=== PATIENT | female | born 1980 | race Caucasian/White ===

== ENCOUNTER 2017-04-18 12:42 | Emergency (ER) | payer OTHER ==
[2017-04-18] MEDS ORDERED: diazePAM INJ 5 MG/ML SYRINGE IM STA (12:59)
[2017-04-18] MEDS ORDERED: KETOROLAC 60 MG/2 ML VIAL IM STA (12:59)
--- NOTE | 2017-04-18 13:00 | ED Physician Documentation ---
PD HPI BACK PAIN - Stated complaint Stated Complaint: LOWER BACK PX - Chief complaint Chief Complaint: Back Pain - History obtained from History obtained from: Patient, Family - History of Present Illness Timing - onset: Other (Without specific trauma she developed thoracic back pain radiating around to the sides, both sides equally today. It is much worse with sitting up, bending or twisting. There is no associated weakness, numbness, or tingling of the legs or saddle area, no incontinence or changes in bowel movements. No fevers.) Review of Systems Constitutional: denies: Fever, Chills Cardiac: denies: Chest pain / pressure Respiratory: denies: Cough, Hemoptysis, Wheezing GI: denies: Abdominal Pain, Nausea PD PAST MEDICAL HISTORY - Present Medications Home Medications: Ambulatory Orders Medication Instructions Recorded Confirmed Cyclobenzaprine [Flexeril] 10 mg PO TID PRN #20 tablet 04/18/17 HYDROcod/ACETAM 5/325 [[place] 5/325] 1 - 2 ea PO Q6H PRN #15 tablet 04/18/17 Ibuprofen [Motrin] 800 mg PO Q8H PRN #30 tablet 04/18/17 Venlafaxine [Effexor] 37.5 mg PO BID 04/18/17 04/18/17 - Allergies Allergies/Adverse Reactions: Allergies Allergy/AdvReac Type Severity Reaction Status Date / Time Penicillins Allergy Anaphylaxis Verified 04/18/17 12:52 PD ED PE NORMAL - Vitals Vital signs reviewed: Yes - General General: Alert and oriented X 3, Other (Winces with motion, comfortable at rest) - Cardiac Cardiac: RRR, No murmur - Respiratory Respiratory: No respiratory distress, Clear bilaterally - Abdomen Abdomen: Non tender - Back Back: No spinal TTP, Other (No reproducible muscular pain of the back.) - Extremities Extremities: Other (The patient has equal and normal Achilles and patellar reflexes bilaterally. Normal sensation in all areas of the legs. Patient denies saddle anesthesia. Normal strength in flexion-extension at the ankles, knees, and flexion of the hips.) - Neuro Neuro: Alert and oriented X 3, Normal speech - Psych Psych: Normal mood, Normal affect Results - Vitals Vitals: Vital Signs - 24 hr 04/18/17 04/18/17 04/18/17 12:49 13:57 14:28 Temperature 36.4 C L 36.7 C 36.7 C Heart Rate 113 H 100 110 H Respiratory 18 18 18 Rate Blood Pressure 131/99 H 132/99 H 138/99 H O2 Saturation 99 98 98 Oxygen O2 Source Room air PD MEDICAL DECISION MAKING - ED course ED course: This patient has seemingly uncomplicated musculoskeletal back pain. The patient has no "red flags." Specifically denies IV drug use, fevers, incontinence, saddle anesthesia. Spinal epidural abscess was considered, given that the patient has no fever, is not diabetic, has no spinal tenderness, does not use IV drugs, and has no bilateral neurologic symptoms, the diagnosis of spinal epidural abscess is considered exceedingly unlikely. She was initially treated with Toradol and Valium IM with modest relief, much better relief after a milligram of Dilaudid IM and requesting discharge. The patient and family were counseled as to the diagnosis and need for follow- up. I counseled the patient with regard to signs and symptoms that would necessitate an urgent reevaluation in the emergency department. They understand they are welcome to return at any time if worse or if not improving as expected. This document was made in part using voice recognition software. While efforts are made to proofread this documents, sound alike and grammatical errors may occur. Departure - Departure Disposition: 01 Home, Self Care Clinical Impression: Back spasm Condition: Good Record reviewed to determine appropriate education?: Yes Instructions: ED Spasm Back No Trauma Prescriptions: Cyclobenzaprine [Flexeril] 10 mg PO TID PRN #20 tablet PRN Reason: Pain HYDROcod/ACETAM 5/325 [[place] 5/325] 1 - 2 ea PO Q6H PRN #15 tablet PRN Reason: Pain Ibuprofen [Motrin] 800 mg PO Q8H PRN #30 tablet PRN Reason: PAIN &/OR FEVER Comments: Your blood pressure was elevated today on check into the emergency department. This does not mean that you have hypertension, it is a common phenomenon to come to the emergency department and have elevated blood pressure. I recommend that you see your primary care physician within the week to have it rechecked when you are feeling better. Do not drink or drive while taking narcotic pain medication. Note that many narcotic pain relievers also contain Tylenol/acetaminophen. Please ensure that your total dose of acetaminophen from all sources does not exceed 3 g (3000 mg) per day. You may get constipated while on this medication. Take a stool softener such as Colace twice a day while you are on it. Also add an dqof-uxi-auixmlp laxative such as senna or MiraLAX on any day that you do not have a bowel movement. If you received a narcotic pain medication or sedative while in the emergency department, do not drive for the next 24 hours. Forms: Activity restrictions
[2017-04-18] MEDS ORDERED: diazePAM INJ 5 MG/ML SYRINGE ONE (13:25)
[2017-04-18] MEDS ORDERED: KETOROLAC 60 MG/2 ML VIAL ONE (13:25)
[2017-04-18] MEDS ORDERED: HYDROmorphone 1 MG/ML SYRINGE IM STA (13:58)
[2017-04-18] MEDS ORDERED: HYDROmorphone 1 MG/ML SYRINGE ONE (14:06)
[2017-04-18 14:29] VITALS: BP 138/99
== END 2017-04-18 14:40 | disposition home or self-care (01) ==
LOC: ED 12:42
DX: M62.830 Muscle spasm of back (principal); R03.0 Elevated blood-pressure reading, without diagnosis of hypertension
CPT/HCPCS: 96372; 99283; J1170

== ENCOUNTER 2017-12-20 15:42 | Outpatient (CLI) | payer OTHER ==
--- NOTE | 2017-12-20 16:40 | XRAY Report ---
Procedure Date: 12/20/2017 Accession Number: [id number] / [id number] Procedure: XR - Thoracic Spine 3 View CPT Code: FULL RESULT: EXAM: Thoracic Spine 3 View DATE: 12/20/2017 4:22 PM CLINICAL HISTORY: CERVICALGIA/THORACIC BACK PAIN COMPARISON: Chest radiograph 06/14/2016. TECHNIQUE: 2 views. FINDINGS: Alignment: Normal. No spondylolisthesis. Minimal S-shaped thoracolumbar scoliosis. Bones: No fractures or bone lesions. Disks: Normal. Disk heights are maintained. Soft Tissues: Surgical clips in the right upper quadrant, likely prior cholecystectomy. The visualized lungs and cardiomediastinal silhouette are normal. IMPRESSION: Minimal S-shaped thoracolumbar scoliosis. RADIA
--- NOTE | 2017-12-20 16:41 | XRAY Report ---
Procedure Date: 12/20/2017 Accession Number: [id number] / [id number] Procedure: XR - Cervical Spine 2 View CPT Code: FULL RESULT: EXAM: Cervical Spine 2 View DATE: 12/20/2017 4:22 PM CLINICAL HISTORY: CERVICALGIA/THORACIC BACK PAIN COMPARISON: None. TECHNIQUE: 3 views. FINDINGS: Alignment: Relative straightening of the normal cervical curvature which may be positional. No spondylolisthesis or scoliosis. Bones: The cervical vertebral bodies and posterior elements are well visualized from the skull base through C7-T1. No fractures or bone lesions. Disks: Normal. Disk heights are maintained. Facets: No degenerative disease. Soft Tissues: Normal. No prevertebral soft tissue swelling. The visualized lung apices are clear. IMPRESSION: Relative straightening of the normal cervical curvature, possibly positional. Otherwise, normal cervical spine radiography. RADIA
== END 2017-12-20 15:43 | disposition home or self-care (01) ==
LOC: DI 15:42
PROVIDERS: ATTEND Nurse Practitioner
DX: M41.85 Other forms of scoliosis, thoracolumbar region (principal); M54.2 Cervicalgia; M54.6 Pain in thoracic spine
CPT/HCPCS: 72040; 72072

== ENCOUNTER 2020-06-10 11:43 | Outpatient (CLI) | payer BC ==
[2020-06-10 12:10] LABS: BASOPHILS # (AUTO) 0.1 10^3/uL (0.0-0.1); BASOPHILS % (AUTO) 0.6 %; EOSINOPHILS # (AUTO) 0.1 10^3/uL (0.0-0.7); EOSINOPHILS % (AUTO) 0.5 %; HGB - HEMOGLOBIN 15.8 g/dL (12.0-16.0); LYMPHOCYTES # (AUTO) 2.3 10^3/uL (1.5-3.5); LYMPHOCYTES % (AUTO) 23.3 %; MEAN CORPUSCULAR HEMOGLOBIN 31.7 pg (27.0-31.0); MEAN CORPUSCULAR VOLUME 90.8 fL (81.0-99.0); MEAN PLATELET VOLUME 8.7 fL (7.9-10.8); MONOCYTES # (AUTO) 0.5 10^3/uL (0.0-1.0); MONOCYTES % (AUTO) 4.6 %; NEUTROPHILS % (AUTO) 70.7 %; PLT - PLATELET COUNT 447 10^3/uL (130-450); RED BLOOD COUNT 4.98 10^6/uL (4.20-5.40); RED CELL DISTRIBUTION WIDTH 12.6 % (12.0-15.0); WHITE BLOOD COUNT 9.9 x10^3/uL (4.8-10.8)
[2020-06-10 12:21] LABS: ALBUMIN 4.6 g/dL (3.2-5.5); ALBUMIN/GLOBULIN RATIO 1.7 (1.0-2.2); CALCIUM 9.5 mg/dL (8.5-10.3); CREATININE 0.8 mg/dL (0.4-1.0); TOTAL PROTEIN 7.3 g/dL (6.7-8.2)
== END 2020-06-10 11:44 | disposition home or self-care (01) ==
LOC: LAB 11:43
PROVIDERS: ATTEND Internal Medicine
DX: R19.7 Diarrhea, unspecified (principal)
CPT/HCPCS: 36415; 80053; 85025

== ENCOUNTER 2020-07-25 13:14 | Outpatient (CLI) | payer BC ==
[2020-07-25] MEDS ORDERED: GADOBUTROL 10 MMOL/10 ML VIAL ONE (14:26)
[2020-07-25] MEDS ORDERED: GADOBUTROL 10 MMOL/10 ML VIAL IVP ONE (15:45)
--- NOTE | 2020-07-25 15:56 | MRI Report ---
PROCEDURE: Brain W/WO INDICATIONS: Papilledema CONTRAST: IV CONTRAST: Gadavist ml: 9 TECHNIQUE: Noncontrast axial T1 spin echo, axial T2 fast spin echo, sagittal and axial FLAIR, coronal T2 fast sp in echo, axial gradient echo, axial diffusion and ADC through the brain. After the administration of contrast, axial and coronal T1 spin echo with fat saturation through the brain. COMPARISON: None. FINDINGS: There is flattening of the posterior globes bilaterally, without lowell intrusion of the optic nerve h sonu into the posterior vitreous. Volume of CSF within the optic nerve sheaths is subjectively at the upper limits of normal or perhaps borderline increased. Sella turcica is normal in size. The pituita ry and suprasellar structures are within normal limits. No abnormal enlargement of the cavernous sinu ses. Normal ventricular caliber and position. Patent basilar cisterns. No abnormal extra axial fluid colle ction, findings of mass effect or midline shift. No abnormal intracranial or orbital enhancement. No inferior cerebellar tonsillar ectopia. The remaining midline structures are normal in configuratio n. No abnormal intracranial susceptibility. No restricted diffusion. The major intracranial vascular flow-related signal voids are maintained. The major dural venous sinuses appear patent and normal in caliber. IMPRESSION: No mass lesion or other acute intracranial finding. Subtle flattening of the posterior globes which would be consistent with the provided history of carrie lledema. No other imaging findings of increased intracranial pressure. If clinically warranted, lumba r puncture and CSF measurements can be performed. Reviewed by: Armando Cuadra MD on 07/25/2020 3:55 PM PST Approved by: Armando Cuadra MD on 07/25/2020 3:55 PM PST Station ID: [id number]
== END 2020-07-25 13:15 | disposition home or self-care (01) ==
LOC: DI 13:14
PROVIDERS: ATTEND Internal Medicine
DX: H47.10 Unspecified papilledema (principal)
CPT/HCPCS: 70553; A9585

== ENCOUNTER 2021-03-30 15:33 | Outpatient (CLI) | payer BC ==
--- NOTE | 2021-04-02 02:21 | XRAY Report ---
PROCEDURE: Cervical Spine 2 View INDICATIONS: PAIN TECHNIQUE: 4 view(s) of the cervical spine were acquired. Images became available for interpretatio n on 03/30/2021 COMPARISON: X-ray cervical spine 12/20/2017 FINDINGS: Bones: No fractures or dislocations to the C7-T1 level. The lateral masses of C1 appear intact on t he odontoid view. No suspicious bony lesions. There is reversal of cervical curvature with apex at C5. There is trace anterolisthesis of C3 on C4. Moderate to severe disc space narrowing is present fr om C4-5 through C6-7 most severe at C5-6. Small nonbridging anterior osteophytes are present. Multile faye uncovertebral hypertrophy is present. Soft tissues: No prevertebral soft tissue swelling. IMPRESSION: Multilevel degenerative changes most notable at C5-6 and C6-7 with uncovertebral arthrop athy. Reviewed by: Betsy Montemayor MD on 04/02/2021 12:59 AM PDT Approved by: Betsy Montemayor MD on 04/02/2021 12:59 AM PDT Station ID: [id number]
== END 2021-03-30 15:34 | disposition home or self-care (01) ==
LOC: DI.N 15:33
PROVIDERS: ATTEND Internal Medicine
DX: M47.812 Spondylosis without myelopathy or radiculopathy, cervical region (principal); M48.02 Spinal stenosis, cervical region

== ENCOUNTER 2021-07-14 08:00 | Outpatient (CLI) | payer MEDICAID | END 2021-07-14 23:59 | LOC: LAB.N 08:00 | PROVIDERS: ATTEND Physician Assistant Medical | DX: U07.1 COVID-19 (principal) ==

== ENCOUNTER 2021-10-17 08:51 | Emergency (ER) | payer MEDICAID ==
[2021-10-17] MEDS ORDERED: BUPIVACAINE 0.5% PF 10 ML VIAL IM ONE (09:05)
[2021-10-17] MEDS ORDERED: TRIAMCINOLONE 40 MG/ML VIAL IM STA (09:05)
[2021-10-17] MEDS ORDERED: KETOROLAC 60 MG/2 ML VIAL IM STA (09:05)
--- NOTE | 2021-10-17 09:07 | ED Physician Documentation ---
PD HPI BACK PAIN - Stated complaint Stated Complaint: LT HIP PX - Chief complaint Chief Complaint: Back Pain - History obtained from History obtained from: Patient - Additional information Additional information: 41-year-old woman with history of recurrent low back pain presents with pain above the sciatic notch on the left starting yesterday. May have been associated with lifting a case of water. Pain radiates a bit into the buttock but not further without weakness, numbness, tingling, saddle anesthesia, or fevers. No possibility of . She tried ibuprofen which was ineffective. She had 1 Vicodin which is moderately effective. 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 HEENT: Tonsil/Adenoidectomy - Present Medications Home Medications: Ambulatory Orders Medication Instructions Recorded Confirmed Cyclobenzaprine [Flexeril] 10 mg PO TID PRN #20 tablet 04/18/17 HYDROcod/ACETAM 5/325 [[place] 5/325] 1 - 2 ea PO Q6H PRN #15 tablet 04/18/17 Ibuprofen [Motrin] 800 mg PO Q8H PRN #30 tablet 04/18/17 Venlafaxine [Effexor] 37.5 mg PO BID 04/18/17 04/18/17 Cyclobenzaprine [Flexeril] 10 mg PO TID PRN #20 tablet 10/17/21 HYDROcod/ACETAM 5/325 [[place] 5/325] 1 - 2 tab PO Q6H PRN #15 tablet 10/17/21 - Allergies Allergies/Adverse Reactions: Allergies Allergy/AdvReac Type Severity Reaction Status Date / Time Penicillins Allergy Anaphylaxis Verified 10/17/21 09:00 - Social History Does the pt smoke?: No Smoking Status: Never smoker Does the pt drink ETOH?: No Does the pt have substance abuse?: Yes - Immunizations Immunizations are current?: Yes - POLST Patient has POLST: No PD ED PE NORMAL - Vitals Vital signs reviewed: Yes - General General: Alert and oriented X 3, Other (Comfortable at rest, winces with motion) - Abdomen Abdomen: Normal bowel sounds, Soft, Non tender - Back Back: Other (Muscular tenderness above the sciatic notch on the left, no midline spinal tenderness) - Extremities Extremities: Other (The patient has equal and normal Achilles and patellar reflexes bilaterally. Normal sensation in all areas of the legs. Patient denies saddle anesthesia. Normal strength in flexion-extension at the ankles, knees, and flexion of the hips.) - Neuro Neuro: Alert and oriented X 3, Normal speech Results - Vitals Vitals: Vital Signs - 24 hr 10/17/21 10/17/21 08:58 09:43 Temperature 36.6 C Heart Rate 87 78 Respiratory 20 16 Rate Blood Pressure 119/84 H 110/91 H O2 Saturation 100 100 Oxygen O2 Source Room air Procedures - General procedure General procedure: A trigger point injection with 9 mL of 0.5% Marcaine and 1 mL containing 40 mg of triamcinolone was injected using a 25-gauge needle into the most tender area in the left low back after verbal consent. PD MEDICAL DECISION MAKING - ED course ED course: This patient has seemingly uncomplicated musculoskeletal back pain. The patient has no "red flags." Specifically denies IV drug use, fevers, incontinence, saddle anesthesia. Spinal epidural abscess was considered, given that the clifton michele has no fever, is not diabetic, has no spinal tenderness, does not use IV drugs, and has no bilateral neurologic symptoms, the diagnosis of spinal epidural abscess is considered exceedingly unlikely. Departure - Departure Disposition: 01 Home, Self Care Clinical Impression: Back spasm Condition: Good Record reviewed to determine appropriate education?: Yes Instructions: ED Low Back Pain Injury Prescriptions: Cyclobenzaprine [Flexeril] 10 mg PO TID PRN #20 tablet PRN Reason: Spasms HYDROcod/ACETAM 5/325 [[place] 5/325] 1 - 2 tab PO Q6H PRN #15 tablet PRN Reason: Pain Comments: I sent your prescription to [facility] in [place]. Call your doctor to arrange a follow-up appointment, make the next available appointment. In the interim, return anytime if worse or if new symptoms develop. I am prescribing a short course of narcotic pain medication for you. These are potentially dangerous and addictive medications that should be used carefully. These medications may constipate you. Take an zkew-fre-xozgqnp stool softener (docusate) twice daily with plenty of water while taking these medications. If you go 24 hours without a bowel movement, take dnmm-bad-getmccf miralax, per package instructions. Do not drink or drive while taking these medications. If you received narcotic or sedating medications while in the emergency department, do not drive for 24 hours. Store this medication in a safe, secure place and out of reach of children. It is a violation of federal law to give or sell this medication to another person or to use in a manner other than prescribed. The ED will not refill narcotic prescriptions, including prescriptions lost or stolen. To dispose of unwanted medications: 1. [facility] at [address] in [place] has a medication drop box. They accept prescription medications (in pill form) Tuesday through Tuesday 9:00 a.m. to 5:00 p.m. 2. The [facility] accepts prescription medications (in pill form only) for disposal year round. Call for more information. 3. Contact the [facility] for the next [facility] sponsored prescription drug collection event. , [phone], or [phone]; Note that many narcotic pain relievers also contain Tylenol/acetaminophen. Please ensure that your total dose of acetaminophen from all sources does not exceed 3 g (3000 mg) per day. Discharge Date/Time: 10/17/21 09:46
[2021-10-17 09:45] VITALS: BP 110/91
[2021-10-17] MEDS ORDERED: BUPIVACAINE 0.5% PF 30 ML VIAL IM ONE (10:00)
== END 2021-10-17 09:46 | disposition home or self-care (01) ==
LOC: ED 08:51
DX: M62.830 Muscle spasm of back (principal); M25.552 Pain in left hip
CPT/HCPCS: 20552; 99282

== ENCOUNTER 2022-04-01 14:50 | Emergency (ER) | payer MEDICAID ==
[2022-04-01] MEDS ORDERED: CLINDAMYCIN 900 MG/50 ML 50 ML IV ONE (15:55)
--- NOTE | 2022-04-01 15:57 | ED Physician Documentation ---
PD HPI HEENT - Stated complaint Stated Complaint: L JAW SWELLING - Chief complaint Chief Complaint: Heent - History obtained from History obtained from: Patient - Additional information Additional information: O/W HEALTHY 41YO F WITH NO POSS PREG. PIMPLE LIKE LESION SHE PICKED UNDER LEFT JAW THIS MORNING WITH PRORESSIVE SWELLING LEFT JAW AREA. 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 HEENT: Tonsil/Adenoidectomy - Present Medications Home Medications: Ambulatory Orders Medication Instructions Recorded Confirmed Cyclobenzaprine [Flexeril] 10 mg PO TID PRN #20 tablet 04/18/17 HYDROcod/ACETAM 5/325 [[place] 5/325] 1 - 2 ea PO Q6H PRN #15 tablet 04/18/17 Ibuprofen [Motrin] 800 mg PO Q8H PRN #30 tablet 04/18/17 Venlafaxine [Effexor] 37.5 mg PO BID 04/18/17 04/18/17 Cyclobenzaprine [Flexeril] 10 mg PO TID PRN #20 tablet 10/17/21 HYDROcod/ACETAM 5/325 [[place] 5/325] 1 - 2 tab PO Q6H PRN #15 tablet 10/17/21 HYDROcod/ACETAM 5/325 [[place] 5/325] 1 - 2 tab PO Q6H PRN #15 tablet 04/01/22 clindamycin HCL [Cleocin HCl] 300 mg PO QID #28 cap 04/01/22 - Allergies Allergies/Adverse Reactions: Allergies Allergy/AdvReac Type Severity Reaction Status Date / Time Penicillins Allergy Anaphylaxis Verified 10/17/21 09:00 codeine AdvReac Nausea Verified 04/01/22 15:10 - Social History Does the pt smoke?: No Smoking Status: Never smoker Does the pt drink ETOH?: No Does the pt have substance abuse?: Yes - Immunizations Immunizations are current?: Yes - POLST Patient has POLST: No PD ED PE NORMAL - Vitals Vital signs reviewed: Yes - General General: Alert and oriented X 3, No acute distress - HEENT HEENT: Other (SMALL SCABBED PUSTULAR LESION UNDER L JAW WITH MODERATE SWELLING AND INDURATION IN THAT AREA. LG CAVITY L ZOLTAN MOLAR BUT NOT TTP) - Neck Neck: Supple, no meningeal sign, No bony TTP - Cardiac Cardiac: RRR, No murmur - Respiratory Respiratory: No respiratory distress, Clear bilaterally - Abdomen Abdomen: Non tender - Back Back: No CVA TTP, No spinal TTP - Derm Derm: Normal color, Warm and dry - Extremities Extremities: No edema, No calf tenderness / cord - Neuro Neuro: Alert and oriented X 3, Normal speech Results - Vitals Vitals: Vital Signs - 24 hr 04/01/22 04/01/22 15:07 18:27 Temperature 36.0 C L Heart Rate 73 81 Respiratory 20 16 Rate Blood Pressure 147/104 H 152/103 H O2 Saturation 99 96 Oxygen O2 Source Room air - Labs Labs: Laboratory Tests 04/01/22 04/01/22 16:21 16:21 WBC 12.8 H RBC 4.53 Hgb 14.3 Hct 41.4 MCV 91.4 MCH 31.6 H MCHC 34.5 RDW 12.1 Plt Count 372 MPV 8.9 Neut # (Auto) 8.0 H Lymph # (Auto) 3.5 Andrews # (Auto) 1.0 Eos # (Auto) 0.3 Baso # (Auto) 0.1 Absolute Nucleated RBC 0.00 Nucleated RBC % 0.0 Sodium 135 Potassium 3.6 Chloride 106 Carbon Dioxide 21 Anion Gap 8.0 BUN 18 Creatinine 0.6 Estimated GFR (MDRD) 110 Glucose 92 Calcium 9.2 - Rads (name of study) CT of the neck with IV contrast demonstrates a left lower face subm andibular infection without abscess, prominent local adenopathy. Radiology: EMP read contemporaneously PD MEDICAL DECISION MAKING - ED course ED course: 41-year-old woman presents with an acute progressive facial infection that looks like it is based from the skin. I was able to get just a drop of pus from the pustular lesion to culture. White count modestly elevated. Did not seem to progress well in the department and received 900 mg of IV clindamycin here. CT not demonstrating an abscess but discussed with patient and that this looks like a staph infection and abscesses often will subsequently developed even if it is not present on the index visit and given close return precautions. Departure - Departure Disposition: 01 Home, Self Care Clinical Impression: Facial cellulitis Condition: Good Record reviewed to determine appropriate education?: Yes Instructions: ED Cellulitis Facial Prescriptions: clindamycin HCL [Cleocin HCl] 300 mg PO QID #28 cap HYDROcod/ACETAM 5/325 [[place] 5/325] 1 - 2 tab PO Q6H PRN #15 tablet PRN Reason: Pain Comments: I [facility] [place]. As discussed it appears that you have a facial infection starting from the skin, inferior to the left jaw. We are performing a wound culture, the results should be done in 48-72 hours. If antibiotic change is necessary we will call you. As discussed, it looks like a staph type of infection, these often will create abscesses even though there is no abscess present on the CAT scan at this point. Plan to return on Tuesday for reevaluation unless much much better. If an abscess develops you may need incision and drainage. I am prescribing a short course of narcotic pain medication for you. These are potentially dangerous and addictive medications that should be used carefully. These medications may constipate you. Take an ahmt-sgv-uuqtqls stool softener (docusate) twice daily with plenty of water while taking these medications. If you go 24 hours without a bowel movement, take gfzk-mgl-bjxzduw miralax, per package instructions. Do not drink or drive while taking these medications. If you received narcotic or sedating medications while in the emergency department, do not drive for 24 hours. Store this medication in a safe, secure place and out of reach of children. It is a violation of federal law to give or sell this medication to another person or to use in a manner other than prescribed. The ED will not refill narcotic prescriptions, including prescriptions lost or stolen. To dispose of unwanted medications: 1. [facility] at [address] in [place] has a medication drop box. They accept prescription medications (in pill form) Tuesday through Tuesday 9:00 a.m. to 5:00 p.m. 2. The [facility] Police Department accepts prescription medications (in pill form only) for disposal year round. Call for more information. 3. Contact the [facility] for the next [facility] sponsored prescription drug collection event. , [phone], or [phone]; Note that many narcotic pain relievers also contain Tylenol/acetaminophen. Please ensure that your total dose of acetaminophen from all sources does not exceed 3 g (3000 mg) per day. Discharge Date/Time: 04/01/22 18:28
[2022-04-01 16:27] LABS: BASOPHILS # (AUTO) 0.1 10^3/uL (0.0-0.1); BASOPHILS % (AUTO) 0.6 %; EOSINOPHILS # (AUTO) 0.3 10^3/uL (0.0-0.7); EOSINOPHILS % (AUTO) 2.3 %; HCT - HEMATOCRIT 41.4 % (37.0-47.0); HGB - HEMOGLOBIN 14.3 g/dL (12.0-16.0); LYMPHOCYTES # (AUTO) 3.5 10^3/uL (1.5-3.5); LYMPHOCYTES % (AUTO) 26.9 %; MEAN CORPUSCULAR HEMOGLOBIN 31.6 pg (27.0-31.0); MEAN CORPUSCULAR HGB CONC 34.5 g/dL (32.0-36.0); MEAN CORPUSCULAR VOLUME 91.4 fL (81.0-99.0); MEAN PLATELET VOLUME 8.9 fL (7.9-10.8); MONOCYTES % (AUTO) 7.9 %; NEUTROPHILS % (AUTO) 62.1 %; PLT - PLATELET COUNT 372 10^3/uL (130-450); RED BLOOD COUNT 4.53 10^6/uL (4.20-5.40); RED CELL DISTRIBUTION WIDTH 12.1 % (12.0-15.0); WHITE BLOOD COUNT 12.8 x10^3/uL (4.8-10.8)
[2022-04-01] MEDS ORDERED: KETOROLAC 15 MG/ML VIAL IVP STA (16:31)
[2022-04-01] MEDS ORDERED: HYDROmorphone 1 MG/ML CARPUJECT IVP STA ×2 (16:31→18:02)
[2022-04-01 16:37] LABS: CALCIUM 9.2 mg/dL (8.5-10.3); CREATININE 0.6 mg/dL (0.4-1.0); POTASSIUM 3.6 mmol/L (3.5-5.0)
[2022-04-01] MEDS ORDERED: iohexoL-300 100 ML VIAL ONE (16:50)
--- NOTE | 2022-04-01 17:54 | CT Report ---
PROCEDURE: SOFT TISSUE NECK W INDICATIONS: L NECK INFECTION CONTRAST: 100ml Omnipaque 300 TECHNIQUE: After the administration of intravenous contrast, 3.0 mm axial sections acquired from the sella to th e aortic arch. Additional oblique axial 3.0 mm sections acquired through the pharynx. 3 mm thick co malinda reformats were generated. For radiation dose reduction, the following was used: automated exp osure control, adjustment of mA and/or kV according to patient size. COMPARISON: None. FINDINGS: Image quality: Excellent Brain: Partially visualized, unremarkable. Orbits: No masses or abscess. Mouth and pharynx: Tonsils are prominent. No measurable mass. No abscess. Airway: There is some narrowing at the location of the tonsillar tissues, otherwise patent. Neck spaces: No drainable fluid collection. In the left perimandibular and submandibular regions, the re is skin thickening and soft tissue stranding. Multiple borderline enlarged level 1 lymph nodes are present. Glands: Unremarkable. No actionable thyroid nodules. Vessels: Patent. No occlusion. Upper chest: Unremarkable. No apical pneumothorax. Sinuses and mastoids: No significant opacification. Bones: No acute or suspicious osseous abnormality. Straightening of normal cervical lordosis. IMPRESSION: Suspected soft tissue infection of the left lower face and submandibular regions without a drainable abscess. Prominent lymph nodes and tonsillar tissues are probably reactive given this portable kerry xt. Reviewed by: Tre Garg MD on 04/01/2022 5:52 PM PDT Approved by: Tre Garg MD on 04/01/2022 5:52 PM PDT Station ID: [id number]
[2022-04-01 18:29] VITALS: BP 152/103
[2022-04-01] MEDS ORDERED: iohexoL-300 100 ML VIAL IVP ONE (18:47)
== END 2022-04-01 18:28 | disposition home or self-care (01) ==
LOC: ED 14:50
DX: L03.211 Cellulitis of face (principal)
CPT/HCPCS: 36415; 70491; 80048; 85025; 87070; 87181; 87205; 96365; 96375; 99284; J1170; Q9967

== ENCOUNTER 2022-04-02 18:12 | Emergency (ER) | payer MEDICAID ==
[2022-04-02] MEDS ORDERED: VANCOMYCIN INJ 1 GM in SODIUM CHLORIDE 0.9% 500 ML IV STA (18:42)
[2022-04-02] MEDS ORDERED: DEXAMETHASONE 10 MG/ML VIAL PO STA (18:42)
[2022-04-02] MEDS ORDERED: cefTRIAXone 1 GM VIAL IVP STA (18:42)
[2022-04-02] MEDS ORDERED: CHERRY SYRUP 10 ML UDC PO ONE (18:42)
--- NOTE | 2022-04-02 18:45 | ED Physician Documentation ---
PD HPI WOUND RECHECK - Stated complaint Stated Complaint: JAW SWELLING - Chief complaint Chief Complaint: Wound - Histroy obtained from History obtained from: Patient, Family - History of Present Illness Location: Neck Pain level max: 5 Pain level now: 5 Associated symptoms: Swelling. No: Fever, Drainage - Additional information Additional information: Patient is a 41-year-old female who presents to the emergency department stating she was seen here yesterday for redness and swelling to the left side of her neck. She was given a dose of clindamycin IV and placed on oral clindamycin. She states increased swelling today. No fever. No drainage. Continuing to have pain. Nothing seems to make it better or worse. CT scan did not show an abscess yesterday. Patient states the pain is not controlled at home with her Vicodin. 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 HEENT: Tonsil/Adenoidectomy - Present Medications Home Medications: Ambulatory Orders Medication Instructions Recorded Confirmed Cyclobenzaprine [Flexeril] 10 mg PO TID PRN #20 tablet 04/18/17 HYDROcod/ACETAM 5/325 [Ararat 5/325] 1 - 2 ea PO Q6H PRN #15 tablet 04/18/17 Ibuprofen [Motrin] 800 mg PO Q8H PRN #30 tablet 04/18/17 Venlafaxine [Effexor] 37.5 mg PO BID 04/18/17 04/18/17 Cyclobenzaprine [Flexeril] 10 mg PO TID PRN #20 tablet 10/17/21 HYDROcod/ACETAM 5/325 [Ararat 5/325] 1 - 2 tab PO Q6H PRN #15 tablet 10/17/21 HYDROcod/ACETAM 5/325 [Ararat 5/325] 1 - 2 tab PO Q6H PRN #15 tablet 04/01/22 clindamycin HCL [Cleocin HCl] 300 mg PO QID #28 cap 04/01/22 Oxycodone HCl/Acetaminophen 1 - 2 each PO Q6H PRN #14 tablet 04/02/22 [Percocet 5-325 mg Tablet] Sulfamethox/Trimeth 800/160 1 each PO BID #14 tablet 04/02/22 [Bactrim Ds 800/160] - Allergies Allergies/Adverse Reactions: Allergies Allergy/AdvReac Type Severity Reaction Status Date / Time Penicillins Allergy Anaphylaxis Verified 04/02/22 18:27 codeine AdvReac Nausea Verified 04/02/22 18:27 - Social History Does the pt smoke?: No Smoking Status: Never smoker Does the pt drink ETOH?: No Does the pt have substance abuse?: Yes - Immunizations Immunizations are current?: Yes - POLST Patient has POLST: No PD ED PE NORMAL - Vitals Vital signs reviewed: Yes - General General: Alert and oriented X 3, No acute distress, Well developed/nourished - HEENT HEENT: PERRL, Moist mucous membranes, Pharynx benign (Normal phonation. No trismus), Dentition benign, Other (Mild swelling to the left submandibular area with a small area of induration, no fluctuance. There is mild cellulitis extending up the cheek. No drainage.) - Neck Neck: Supple, no meningeal sign - Cardiac Cardiac: RRR - Respiratory Respiratory: No respiratory distress, Clear bilaterally - Abdomen Abdomen: Soft, Non tender, Non distended - Derm Derm: Warm and dry - Neuro Neuro: Alert and oriented X 3 - Psych Psych: Normal mood, Normal affect Results - Vitals Vitals: Vital Signs - 24 hr 04/02/22 04/02/22 04/02/22 18:23 20:49 21:31 Temperature 36.5 C Heart Rate 89 81 Respiratory 18 12 16 Rate Blood Pressure 156/112 H 142/93 H O2 Saturation 98 97 04/02/22 21:40 Temperature Heart Rate 80 Respiratory 16 Rate Blood Pressure 132/94 H O2 Saturation 95 Oxygen O2 Source Room air - Labs Labs: Laboratory Tests 04/02/22 04/02/22 18:49 18:49 WBC 9.4 RBC 4.44 Hgb 13.8 Hct 41.9 MCV 94.4 MCH 31.1 H MCHC 32.9 RDW 12.2 Plt Count 315 MPV 8.8 Neut # (Auto) 5.8 Lymph # (Auto) 2.2 Laporte # (Auto) 1.0 Eos # (Auto) 0.3 Baso # (Auto) 0.1 Absolute Nucleated RBC 0.00 Nucleated RBC % 0.0 Sodium 134 L Potassium 3.7 Chloride 102 Carbon Dioxide 23 Anion Gap 9.0 BUN 13 Creatinine 0.6 Estimated GFR (MDRD) 110 Glucose 96 Calcium 8.9 PD MEDICAL DECISION MAKING - ED course Complexity details: reviewed results, re-evaluated patient, considered differential, d/w patient ED course: 41-year-old female with a decreasing white blood cell count compared to yesterday. She states the main issue is her pain is not well controlled. She was given Rocephin and vancomycin here. Her wound culture is preliminary for staph aureus, we will add Bactrim. We will change her pain medication for home. Normal phonation. No trismus. No indication for repeat CT at this time. Given dexamethasone here as well. We will have her follow-up closely with her doctor for further care. Strict return precautions given at bedside. Patient and family counseled regarding signs and symptoms for which I believe and urgent re-evaluation would be necessary. Patient with good understanding of and agreement to plan and is comfortable going home at this time This document was made in part using voice recognition software. While efforts are made to proofread this document, sound alike and grammatical errors may occur. Departure - Departure Disposition: 01 Home, Self Care Clinical Impression: Facial cellulitis Condition: Good Instructions: ED Infec Skin Cellulitis Follow-Up: your,doctor in 3 days [Other] Prescriptions: Sulfamethox/Trimeth 800/160 [Bactrim Ds 800/160] 1 each PO BID #14 tablet Oxycodone HCl/Acetaminophen [Percocet 5-325 mg Tablet] 1 - 2 each PO Q6H PRN #14 tablet PRN Reason: pain Comments: We will add a second antibiotic. Please start this tomorrow. Your pain medication was also sent to the pharmacy for you. You should notice improvement within the next 12 to 24 hours. Return if you worsen. Otherwise follow-up with your doctor on Tuesday for recheck. Your prescriptions were sent to [facility] in [place]. I am prescribing a short course of narcotic pain medication for you. These are potentially dangerous and addictive medications that should be used carefully. These medications may constipate you. Take an sstr-ver-dilhsmp stool softener (docusate) twice daily with plenty of water while taking these medications. If you go 24 hours without a bowel movement, take tsvk-chn-emvilpk miralax, per package instructions. Do not drink or drive while taking these medications. If you received narcotic or sedating medications while in the emergency de partment, do not drive for 24 hours. Store this medication in a safe, secure place and out of reach of children. It is a violation of federal law to give or sell this medication to another person or to use in a manner other than prescribed. The ED will not refill narcotic prescriptions, including prescriptions lost or stolen. To dispose of unwanted medications: 1. [facility] [address] in [place] has a medication drop box. They accept prescription medications (in pill form) Tuesday through Tuesday 9:00 a.m. to 5:00 p.m. 2. The [facility] [employer] accepts prescription medications (in pill form only) for disposal year round. Call for more information. 3. Contact the [facility] for the next [facility] sponsored prescription drug collection event. , [phone], or [phone];
[2022-04-02 18:55] LABS: BASOPHILS # (AUTO) 0.1 10^3/uL (0.0-0.1); BASOPHILS % (AUTO) 0.7 %; EOSINOPHILS # (AUTO) 0.3 10^3/uL (0.0-0.7); EOSINOPHILS % (AUTO) 3.1 %; HCT - HEMATOCRIT 41.9 % (37.0-47.0); HGB - HEMOGLOBIN 13.8 g/dL (12.0-16.0); LYMPHOCYTES # (AUTO) 2.2 10^3/uL (1.5-3.5); LYMPHOCYTES % (AUTO) 23.8 %; MEAN CORPUSCULAR HEMOGLOBIN 31.1 pg (27.0-31.0); MEAN CORPUSCULAR HGB CONC 32.9 g/dL (32.0-36.0); MEAN CORPUSCULAR VOLUME 94.4 fL (81.0-99.0); MEAN PLATELET VOLUME 8.8 fL (7.9-10.8); MONOCYTES % (AUTO) 10.6 %; NEUTROPHILS # (AUTO) 5.8 10^3/uL (1.5-6.6); NEUTROPHILS % (AUTO) 61.6 %; PLT - PLATELET COUNT 315 10^3/uL (130-450); RED BLOOD COUNT 4.44 10^6/uL (4.20-5.40); RED CELL DISTRIBUTION WIDTH 12.2 % (12.0-15.0); WHITE BLOOD COUNT 9.4 x10^3/uL (4.8-10.8)
[2022-04-02 19:05] LABS: CALCIUM 8.9 mg/dL (8.5-10.3); CREATININE 0.6 mg/dL (0.4-1.0); POTASSIUM 3.7 mmol/L (3.5-5.0)
[2022-04-02] MEDS ORDERED: KETOROLAC 30 MG/ML VIAL IVP STA (19:25)
[2022-04-02] MEDS ORDERED: oxyCODONE 5 MG TABLET PO STA ×3 (19:26→21:03)
[2022-04-02 22:17] VITALS: BP 120/90
--- NOTE | 2022-04-03 11:15 | ED Physician Documentation ---
ED Addendum - Addendum Addendum: 04/03/22 11:15 Cultures reviewed. I called the patient and let her know that this is MRSA. She plans to take both clindamycin and Bactrim. She is much better since last night regarding the swelling. Discussed signs and symptoms to watch out for including the development of an abscess which she did not have clinically last night or based on CT a couple of nights ago.
== END 2022-04-02 22:25 | disposition home or self-care (01) ==
LOC: ED 18:12
DX: L03.211 Cellulitis of face (principal); B95.61 Methicillin susceptible Staphylococcus aureus infection as the cause of diseases classified elsewhere
CPT/HCPCS: 36415; 80048; 85025; 96365; 96366; 96375; 99283; A9270; J3370

== ENCOUNTER 2022-04-04 15:22 | Emergency (ER) | payer MEDICAID ==
[2022-04-04 16:01] VITALS: BP 142/100
[2022-04-04] MEDS ORDERED: LIDOCAINE 1%-EPI 1:100000 20 ML MDV SUBQ STA (16:56)
--- NOTE | 2022-04-04 16:57 | ED Physician Documentation ---
PD HPI WOUND RECHECK - Stated complaint Stated Complaint: LT FACE SWELLING - Chief complaint Chief Complaint: Wound - Histroy obtained from History obtained from: Patient (41-year-old woman originally seen a few days ago for a left facial infection. No abscess at that time. Subsequently grew MRSA and is on clindamycin and Bactrim. 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 HEENT: Tonsil/Adenoidectomy - Present Medications Home Medications: Ambulatory Orders Medication Instructions Recorded Confirmed Cyclobenzaprine [Flexeril] 10 mg PO TID PRN #20 tablet 04/18/17 HYDROcod/ACETAM 5/325 [Ogden 5/325] 1 - 2 ea PO Q6H PRN #15 tablet 04/18/17 Ibuprofen [Motrin] 800 mg PO Q8H PRN #30 tablet 04/18/17 Venlafaxine [Effexor] 37.5 mg PO BID 04/18/17 04/18/17 Cyclobenzaprine [Flexeril] 10 mg PO TID PRN #20 tablet 10/17/21 HYDROcod/ACETAM 5/325 [Ogden 5/325] 1 - 2 tab PO Q6H PRN #15 tablet 10/17/21 HYDROcod/ACETAM 5/325 [Ogden 5/325] 1 - 2 tab PO Q6H PRN #15 tablet 04/01/22 clindamycin HCL [Cleocin HCl] 300 mg PO QID #28 cap 04/01/22 Oxycodone HCl/Acetaminophen 1 - 2 each PO Q6H PRN #14 tablet 04/02/22 [Percocet 5-325 mg Tablet] Sulfamethox/Trimeth 800/160 1 each PO BID #14 tablet 04/02/22 [Bactrim Ds 800/160] Oxycodone HCl/Acetaminophen 1 - 2 each PO Q6H PRN #14 tablet 04/04/22 [Percocet 5-325 mg Tablet] - Allergies Allergies/Adverse Reactions: Allergies Allergy/AdvReac Type Severity Reaction Status Date / Time Penicillins Allergy Anaphylaxis Verified 04/04/22 15:57 codeine AdvReac Nausea Verified 04/04/22 15:57 - Social History Does the pt smoke?: No Smoking Status: Never smoker Does the pt drink ETOH?: No Does the pt have substance abuse?: Yes - Immunizations Immunizations are current?: Yes - POLST Patient has POLST: No PD ED PE NORMAL - Vitals Vital signs reviewed: Yes - General General: Alert and oriented X 3, No acute distress - HEENT HEENT: Other (There is now more fluctuant area under the left jaw, with a pinpoint of drainage and it looks like kind of 2 separate fluctuant areas.) - Neuro Neuro: Alert and oriented X 3, Normal speech - Psych Psych: Normal mood, Normal affect Results - Vitals Vitals: Vital Signs - 24 hr 04/04/22 15:57 Temperature 36.3 C L Heart Rate 69 Respiratory 16 Rate Blood Pressure 142/100 H O2 Saturation 99 Oxygen O2 Source Room air Procedures - Abscess I&D (location) Left submandibular Preparation: Betadine, Alcohol, Lidocaine 1% (Mental block and some local with excellent anesthesia) Incision: Incised with scalpel (2 stab incisions were made into the most pur ulent areas, one drained more than the other which was superior and 1/4 inch packing was placed there.), Purulent drainage Other: Pt tolerated well, Dressing applied, Antibiotic prescribed Departure - Departure Disposition: 01 Home, Self Care Clinical Impression: Abscess Condition: Good Record reviewed to determine appropriate education?: Yes Instructions: ED Abscess IandD Prescriptions: Oxycodone HCl/Acetaminophen [Percocet 5-325 mg Tablet] 1 - 2 each PO Q6H PRN #14 tablet PRN Reason: pain Comments: I sent your prescription electronically to [facility] in [place]. Continue current antibiotics. Return in 2 days for wound check and packing removal unless you feel comfortable doing it on your own and you are significantly improving. I am prescribing a short course of narcotic pain medication for you. These are potentially dangerous and addictive medications that should be used carefully. These medications may constipate you. Take an azmz-lfa-zbwxgkm stool softener (docusate) twice daily with plenty of water while taking these medications. If you go 24 hours without a bowel movement, take tgnw-rvb-rrhelri miralax, per package instructions. Do not drink or drive while taking these medications. If you received narcotic or sedating medications while in the emergency department, do not drive for 24 hours. Store this medication in a safe, secure place and out of reach of children. It is a violation of federal law to give or sell this medication to another person or to use in a manner other than prescribed. The ED will not refill narcotic prescriptions, including prescriptions lost or stolen. To dispose of unwanted medications: 1. [facility] at [address] in [place] has a medication drop box. They accept prescription medications (in pill form) Tuesday through Tuesday 9:00 a.m. to 5:00 p.m. 2. The [employer] accepts prescription medications (in pill form only) for disposal year round. Call for more information. 3. Contact the [facility] for the next [facility] sponsored prescription drug collection event. , [phone], or [phone]; Note that many narcotic pain relievers also contain Tylenol/acetaminophen. Please ensure that your total dose of acetaminophen from all sources does not exceed 3 g (3000 mg) per day.
== END 2022-04-04 17:18 | disposition home or self-care (01) ==
LOC: ED 15:22
DX: L02.01 Cutaneous abscess of face (principal); B95.62 Methicillin resistant Staphylococcus aureus infection as the cause of diseases classified elsewhere
CPT/HCPCS: 41800; 99283

== ENCOUNTER 2022-06-01 09:27 | Outpatient (CLI) | payer MEDICAID ==
[2022-06-01 12:47] LABS: BASOPHILS # (AUTO) 0.1 10^3/uL (0.0-0.1); BASOPHILS % (AUTO) 0.7 %; EOSINOPHILS # (AUTO) 0.3 10^3/uL (0.0-0.7); EOSINOPHILS % (AUTO) 3.1 %; HCT - HEMATOCRIT 43.9 % (37.0-47.0); HGB - HEMOGLOBIN 14.7 g/dL (12.0-16.0); LYMPHOCYTES # (AUTO) 2.7 10^3/uL (1.5-3.5); LYMPHOCYTES % (AUTO) 33.4 %; MEAN CORPUSCULAR HGB CONC 33.5 g/dL (32.0-36.0); MEAN CORPUSCULAR VOLUME 92.6 fL (81.0-99.0); MEAN PLATELET VOLUME 9.2 fL (7.9-10.8); MONOCYTES # (AUTO) 0.5 10^3/uL (0.0-1.0); MONOCYTES % (AUTO) 5.9 %; NEUTROPHILS # (AUTO) 4.6 10^3/uL (1.5-6.6); NEUTROPHILS % (AUTO) 56.7 %; PLT - PLATELET COUNT 400 10^3/uL (130-450); RED BLOOD COUNT 4.74 10^6/uL (4.20-5.40); RED CELL DISTRIBUTION WIDTH 12.2 % (12.0-15.0); WHITE BLOOD COUNT 8.1 x10^3/uL (4.8-10.8)
[2022-06-01 13:13] LABS: ALBUMIN 4.3 g/dL (3.2-5.5); ALBUMIN/GLOBULIN RATIO 1.4 (1.0-2.2); ALKALINE PHOSPHATASE 59 IU/L (42-121); ALT ALANINE AMINOTRANSFERASE 22 IU/L (10-60); AST ASPARTATE AMINOTRANSFERASE 19 IU/L (10-42); BUN - BLOOD UREA NITROGEN 17 mg/dL (6-20); CALCIUM 9.2 mg/dL (8.5-10.3); CARBON DIOXIDE - CO2 26 mmol/L (21-32); CHLORIDE 100 mmol/L (101-111); CHOL/HDL RATIO 4.7 (<4.4); CHOLESTEROL 234 mg/dL; CREATININE 0.7 mg/dL (0.4-1.0); GFR - MDRD 92 (>89); GLUCOSE 102 mg/dL (70-100); HDL CHOLESTEROL 50 mg/dL; LDL CHOLESTEROL,CALCULATED 139 mg/dL; LDL/HDL RATIO 2.8 (<4.4); SODIUM 135 mmol/L (135-145); TOTAL PROTEIN 7.3 g/dL (6.7-8.2); TRIGLYCERIDES 223 mg/dL; URIC ACID 5.6 mg/dL (2.6-7.2); VLDL CHOLESTEROL 45 mg/dL
[2022-06-01 13:14] LABS: THYROID STIMULATING HORMONE 0.99 uIU/mL (0.34-5.60)
[2022-06-01 13:42] LABS: RHEUMATOID FACTOR NEGATIVE (Negative)
[2022-06-01 14:16] LABS: CRP - C-REACTIVE PROTEIN < 1.0 mg/dL (0-1.0)
[2022-06-02 15:08] LABS: ANTI-DNA (DS) AB QN 2 IU/mL (0-9)
[2022-06-03 18:07] LABS: CYCLIC CITRULLINATED PEP IGG/A 2 units (0-19)
== END 2022-06-01 09:28 | disposition home or self-care (01) ==
LOC: LAB.N 09:27
PROVIDERS: ATTEND Nurse Practitioner
DX: G44.89 Other headache syndrome (principal); Z13.220 Encounter for screening for lipoid disorders; R53.83 Other fatigue; F41.9 Anxiety disorder, unspecified; F32.A Depression, unspecified; M19.049 Primary osteoarthritis, unspecified hand; M47.812 Spondylosis without myelopathy or radiculopathy, cervical region
CPT/HCPCS: 36415; 80053; 80061; 81599; 83721; 84443; 84550; 85025; 85651; 86038; 86140; 86200; 86225; 86430

== ENCOUNTER 2023-08-06 13:34 | Emergency (ER) | payer BC, MEDICAID ==
--- NOTE | 2023-08-06 16:03 | ED Physician Documentation ---
PD HPI BACK PAIN - Stated complaint Stated Complaint: BACK PX/HARD TO WALK - Chief complaint Chief Complaint: Back Pain - History obtained from History obtained from: Patient - History of Present Illness Timing - onset: How many days ago (6) Timing - duration: Days (6) Timing - details: Gradual onset Location: Lower, Left Quality: Pain, Spasm Associated symptoms: Other (radiates down the L leg at times). No: Fever, Weakness, Numbness, Incontinent of urine, Unable to urinate, Hematuria, Incontinent of stool Improves with: Rest Worsened by: Movement Contributing factors: No: Lifting, Twisting, Trauma, Anticoagulated, Cancer, IVDA, Out of meds Similar symptoms before: Has not had sx before Recently seen: Not recently seen Review of Systems Constitutional: denies: Fever, Chills GI: denies: Vomiting, Diarrhea : denies: Unable to Void, Incontinent Skin: denies: Rash Musculoskeletal: denies: Neck pain PD PAST MEDICAL HISTORY - Past Medical History Past Medical History: Yes - Past Surgical History Past Surgical History: Yes 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 HEENT: Tonsil/Adenoidectomy - Present Medications Home Medications: Ambulatory Orders Medication Instructions Recorded Confirmed Venlafaxine [Effexor] 37.5 mg PO DAILY 04/18/17 08/06/23 Cyclobenzaprine [Flexeril] 10 mg PO HS 08/06/23 08/06/23 Oxycodone HCl/Acetaminophen 1 - 2 each PO Q6H PRN #14 tablet 08/06/23 [Percocet 5-325 mg Tablet] MDD 6 tabs Propranolol ER [Inderal LA] 120 mg PO DAILY 08/06/23 08/06/23 methocarbamoL [Robaxin] 500 mg PO Q6H PRN #20 tablet 08/06/23 methylPREDNISolone [Medrol] 4 mg PO DAILY #1 each 08/06/23 - Allergies Allergies/Adverse Reactions: Allergies Allergy/AdvReac Type Severity Reaction Status Date / Time Penicillins Allergy Anaphylaxis Verified 08/06/23 13:52 codeine AdvReac Nausea Verified 08/06/23 13:52 - Social History Does the pt smoke?: No Smoking Status: Never smoker Does the pt drink ETOH?: No Does the pt have substance abuse?: Yes - Immunizations Immunizations are current?: Yes - POLST Patient has POLST: No PD ED PE NORMAL - Vitals Vital signs reviewed: Yes - General General: Alert and oriented X 3, No acute distress - HEENT HEENT: PERRL, Moist mucous membranes - Neck Neck: Supple, no meningeal sign - Cardiac Cardiac: RRR, Strong equal pulses - Respiratory Respiratory: No respiratory distress, Clear bilaterally - Abdomen Abdomen: Soft, Non tender, Non distended - Back Back: No spinal TTP, Other (No midline tenderness to palpation or percussion. No step-off or deformity. There is paraspinal spasm left lower lumbar.) - Derm Derm: Warm and dry - Extremities Extremities: No edema, No calf tenderness / cord - Neuro Neuro: Alert and oriented X 3, No motor deficit, No sensory deficit, Other (Normal bilateral lower extremity patellar and ankle jerk reflexes. Normal great toe extension bilaterally. no saddle anesthesia) - Psych Psych: Normal mood, Normal affect Results - Vitals Vitals: Vital Signs - 24 hr 08/06/23 08/06/23 13:47 16:30 Temperature 36.1 C L Heart Rate 91 80 Respiratory 16 16 Rate Blood Pressure 130/86 H 129/86 H O2 Saturation 97 98 Oxygen O2 Source Room air PD Medical Decision Making - ED course Complexity details: reviewed results, re-evaluated patient, considered differential (No cauda equina, no spinal epidural abscess, no fracture, no aortic dissection or evidence of aneursym rupture), d/w patient, d/w family ED course: 43-year-old female with what appears to be sciatica of the left lower back. No evidence of cauda equina, epidural abscess. No IV drug use. No trauma. No indication for emergent neuroimaging. No focal neurological deficits. Pain well-controlled. Ambulating without difficulty. Will place on pain medication for home along with steroids. Patient counseled regarding signs and symptoms for which I believe and urgent re-evaluation would be necessary. Patient with good understanding of and agreement to plan and is comfortable going home at this time This document was made in part using voice recognition software. While efforts are made to proofread this document, sound alike and grammatical errors may occur. Departure - Departure Disposition: Home, Self Care Clinical Impression: Back spasm Sciatica Qualifiers: Laterality: left Qualified Code(s): M54.32 - Sciatica, left side Condition: Good Instructions: ED Spasm Back No Trauma, ED Sciatica Follow-Up: Leticia Orozco, DIVE MASTER [Primary Care Provider] - Within 1 week Prescriptions: methylPREDNISolone [Medrol] 4 mg PO DAILY #1 each Oxycodone HCl/Acetaminophen [Percocet 5-325 mg Tablet] 1 - 2 each PO Q6H PRN #14 tablet MDD 6 tabs PRN Reason: pain methocarbamoL [Robaxin] 500 mg PO Q6H PRN #20 tablet PRN Reason: muscle spasm Comments: Your prescriptions were sent to [facility] in [place]. This should improve over the next few days with your medications and gentle stretching. Please follow- up with your doctor for further care. Please return if you worsen. I am prescribing a short course of narcotic pain medication for you. These are potentially dangerous and addictive medications that should be used carefully. These medications may constipate you. Take an cxml-qgh-eyhhgsd stool softener (docusate) twice daily with plenty of water while taking these medications. If you go 24 hours without a bowel movement, take oifl-fnd-yrhhtmg miralax, per package instructions. Do not drink or drive while taking these medications. If you received narcotic or sedating medications while in the emergency department, do not drive for 24 hours. Store this medication in a safe, secure place and out of reach of children. It is a violation of federal law to give or sell this medication to another person or to use in a manner other than prescribed. The ED will not refill narcotic prescriptions, including prescriptions lost or stolen. To dispose of unwanted medications: 1. [facility] at [address] in [place] has a medication drop box. They accept prescription medications (in pill form) Tuesday through Tuesday 9:00 a.m. to 5:00 p.m. 2. The [facility] accepts prescription medications (in pill form only) for disposal year round. Call for more information. 3. Contact the [facility] for the next [facility] sponsored prescription drug collection event. , [phone], or [phone]; Discharge Date/Time: 08/06/23 16:30
[2023-08-06] MEDS: methocarbamoL 500 MG TABLET PO STA (16:07)
[2023-08-06] MEDS: oxyCODONE 5 MG TABLET PO STA (16:09)
[2023-08-06 16:36] VITALS: BP 129/86; O2SAT 98
== END 2023-08-06 16:30 | disposition home or self-care (01) ==
LOC: ED 13:34
DX: M54.32 Sciatica, left side (principal); M62.830 Muscle spasm of back
CPT/HCPCS: 99282; 99283; A9270

== ENCOUNTER 2023-12-19 08:32 | Outpatient (CLI) | payer BC ==
[2023-12-19 08:46] LABS: BASOPHILS % (AUTO) 0.4 %; EOSINOPHILS # (AUTO) 0.2 10^3/uL (0.0-0.7); EOSINOPHILS % (AUTO) 2.2 %; HCT - HEMATOCRIT 43.7 % (37.0-47.0); LYMPHOCYTES # (AUTO) 3.2 10^3/uL (1.5-3.5); LYMPHOCYTES % (AUTO) 34.9 %; MEAN CORPUSCULAR HEMOGLOBIN 30.6 pg (27.0-31.0); MEAN CORPUSCULAR HGB CONC 34.3 g/dL (32.0-36.0); MEAN CORPUSCULAR VOLUME 89.2 fL (81.0-99.0); MEAN PLATELET VOLUME 8.9 fL (7.9-10.8); MONOCYTES # (AUTO) 0.6 10^3/uL (0.0-1.0); MONOCYTES % (AUTO) 6.7 %; NEUTROPHILS # (AUTO) 5.1 10^3/uL (1.5-6.6); NEUTROPHILS % (AUTO) 55.6 %; PLT - PLATELET COUNT 393 10^3/uL (130-450); WHITE BLOOD COUNT 9.2 x10^3/uL (4.8-10.8)
[2023-12-19 09:05] LABS: ALBUMIN 4.7 g/dL (3.2-5.5); ALBUMIN/GLOBULIN RATIO 1.9 (1.0-2.2); ALKALINE PHOSPHATASE 57 IU/L (42-121); ALT ALANINE AMINOTRANSFERASE 21 IU/L (10-60); AST ASPARTATE AMINOTRANSFERASE 16 IU/L (10-42); BILIRUBIN,TOTAL 0.9 mg/dL (0.2-1.0); BUN - BLOOD UREA NITROGEN 11 mg/dL (6-20); CALCIUM 9.9 mg/dL (8.5-10.3); CARBON DIOXIDE - CO2 24 mmol/L (21-32); CHLORIDE 103 mmol/L (101-111); CHOL/HDL RATIO 5.1 (<4.4); CHOLESTEROL 204 mg/dL; CREATININE 0.9 mg/dL (0.6-1.3); GFR - MDRD 68 (>89); GLUCOSE 115 mg/dL (74-104); HDL CHOLESTEROL 40 mg/dL; LDL CHOLESTEROL,CALCULATED 107 mg/dL; LDL/HDL RATIO 2.7 (<4.4); POTASSIUM 3.9 mmol/L (3.5-4.5); SODIUM 135 mmol/L (135-145); TOTAL PROTEIN 7.2 g/dL (6.4-8.9); TRIGLYCERIDES 287 mg/dL; VLDL CHOLESTEROL 57 mg/dL
[2023-12-19 09:24] LABS: THYROID STIMULATING HORMONE 2.05 uIU/mL (0.34-5.60)
== END 2023-12-19 08:33 | disposition home or self-care (01) ==
LOC: LAB 08:32
PROVIDERS: ATTEND Nurse Practitioner
DX: G43.009 Migraine without aura, not intractable, without status migrainosus (principal); R53.83 Other fatigue; Z13.220 Encounter for screening for lipoid disorders; F41.9 Anxiety disorder, unspecified; F32.A Depression, unspecified
CPT/HCPCS: 36415; 80053; 80061; 82607; 83721; 84439; 84443; 85025

== ENCOUNTER 2024-01-31 14:21 | Outpatient (CLI) | payer BC ==
--- NOTE | 2024-02-01 11:35 | Mammography Report ---
BILATERAL FIRST EVER DIGITAL SCREENING MAMMOGRAM 3D/2D WITH EXAGGERATED CC: 01/31/2024 CLINICAL: Baseline exam. Routine screening. No prior exams were available for comparison. There are scattered areas of fibroglandular density in both breasts (category b / 25%-50% glandular t issue). No significant masses, calcifications, or other findings are seen in either breast. IMPRESSION: NEGATIVE There is no mammographic evidence of malignancy. A 1 year screening mammogram is recommended. Based on the Tyrer Cuzick model (a risk assessment model) the patient's lifetime risk is 10.3% and he r 10 year risk is 1.7%. According to the ACR, ACS, and NCCN guidelines, an annual breast MRI exam maryan ng with mammogram is recommended if the patient's lifetime risk is 20% or greater. This exam was interpreted at Station ID: [id number]. NOTE: For mammograms, a report in lay terms will be sent to the patient. Approximately 15% of breast malignancies will not be visualized mammographically. In the management of a palpable breast mass, a negative mammogram must not discourage biopsy of a clinically suspicious lesion. Electronically Signed By: Christopher barba/marvin:01/31/2024 16:06:15 letter sent: No_Letter ACR BI-RADS Category 1: Negative [id number] PARENCHYMAL PATTERN: (A) - The breast(s) demonstrate(s) scattered fibroglandular densities. BI-RADS CATEGORY: (1) - 1 RECOMMENDATION: (ANNUAL) - Recommend routine annual screening mammography. [id number] 1 year screening LATERALITY: (B)
== END 2024-01-31 14:22 | disposition home or self-care (01) ==
LOC: DI 14:21
PROVIDERS: ATTEND Nurse Practitioner
DX: Z12.31 Encounter for screening mammogram for malignant neoplasm of breast (principal); R92.323 Mammographic fibroglandular density, bilateral breasts